=== PATIENT | male | born 1990 | race African-American/Black ===

== ENCOUNTER 2019-04-24 12:40 | Inpatient (IN) | payer MEDICAID ==
[~2019-04-24] VITALS: Ht 177.8 cm; Wt 91.2 kg
[~2019-04-24 12:40] MED LIST: PHEN100C4 PO
[2019-04-24 13:56] LABS: HEMATOCRIT. 41.6 % (42.0-52.0); HEMOGLOBIN. 13.9 g/dL (14.0-18.0); MEAN CORPUSCULAR HEMOGLOBIN 28.6 pg (28.0-32.0); MEAN CORPUSCULAR VOLUME 85.8 fL (80.0-94.0); MEAN PLATELET VOLUME 8.8 fl (7.4-10.4); PLATELET 195 x1000/uL (130-400); RED BLOOD CELL COUNT 4.85 mill/uL (4.7-6.1); RED CELL DISTRIBUTION WIDTH 14.1 % (11.6-14.6)
[2019-04-24 14:06] LABS: CHLORIDE 111 mEq/L (98-107)
[2019-04-24 14:10] LABS: ETHANOL BLOOD < 10 mg/dL
[2019-04-24 14:18] LABS: PLATELET ESTIMATE NORMAL
[2019-04-24] MEDS ORDERED: LORAZEPAM 2MG/ML CPJ ONE (14:19)
[2019-04-24] MEDS ORDERED: LORAZEPAM 2MG/ML CPJ IV ONE (14:45)
[2019-04-24 15:20] LABS: *AMPHETAMINES SCREEN URINE NEGATIVE (NEGATIVE); *BARBITURATES SCREEN URINE NEGATIVE (NEGATIVE); *BENZODIAZEPINES SCREEN URINE NEGATIVE (NEGATIVE); *COCAINE SCREEN URINE NEGATIVE (NEGATIVE); METHADONE URINE SCREEN NEGATIVE (NEGATIVE)
[2019-04-24 15:21] LABS: CANNABINOID URINE SCREEN PRESUMTIVE POSITIVE (NEGATIVE); OPIATES URINE SCREEN NEGATIVE (NEGATIVE); PHENCYCLIDINE URINE SCREEN NEGATIVE (NEGATIVE)
[2019-04-24] MEDS ORDERED: LEVETIRACETAM 500MG TABLET PO NR (16:00)
[2019-04-24 17:00] VITALS: BP 127/82
[2019-04-24 17:12] VITALS: BP 130/71
[2019-04-24 18:00] VITALS: BP 145/72
[2019-04-24] MEDS ORDERED: ALBU6.7H9 INH (19:08)
[2019-04-24] MEDS ORDERED: LEVE1000 MT (19:08)
[2019-04-24] MEDS ORDERED: LORAZEPAM 2MG/ML CPJ IV PRN (19:45)
[2019-04-24 20:00] VITALS: BP 134/78
[2019-04-24] MEDS: LEVETIRACETAM 500MG TABLET PO SCH (20:52)
[2019-04-24 22:20] VITALS: BP 147/102
[2019-04-24] MEDS: IPRATROPIUM/ALBUTEROL 0.5-3(2.5)MG/3ML NEB HHN PRN (22:37)
[2019-04-25] VITALS: BP 150/90
[2019-04-25 02:00] VITALS: BP 129/67
[2019-04-25 04:00] VITALS: BP 118/51
[2019-04-25 06:00] VITALS: BP 131/75
[2019-04-25 08:00] VITALS: BP 145/82
[2019-04-25] MEDS: IPRATROPIUM/ALBUTEROL 0.5-3(2.5)MG/3ML NEB HHN PRN (08:53)
[2019-04-25] MEDS ORDERED: PNEUMOCOCCAL 23-VAL P-SAC VAC 0.5 ML IM ONE (09:00)
[2019-04-25] MEDS: LEVETIRACETAM 500MG TABLET PO SCH (09:22)
== END 2019-04-25 09:50 | disposition left against medical advice (07) | DRG 53 ==
LOC: ER 12:40 → EDBEDREQ 15:06 → ENRESERV 15:28 → 5EST 17:40
PROVIDERS: ADMIT Internal Medicine; ATTEND Internal Medicine
DX: G40.901 Epilepsy, unspecified, not intractable, with status epilepticus (principal); E87.8 Other disorders of electrolyte and fluid balance, not elsewhere classified; F12.90 Cannabis use, unspecified, uncomplicated; S00.83XA Contusion of other part of head, initial encounter; X58.XXXA Exposure to other specified factors, initial encounter; J45.909 Unspecified asthma, uncomplicated; Z79.899 Other long term (current) drug therapy; Y93.89 Activity, other specified; Y92.89 Other specified places as the place of occurrence of the external cause; Y99.8 Other external cause status
CPT/HCPCS: 36415; 80185; 80305; 80320; 90732; 94003; 94640; 96374; 99285; J2060; J7620; G0480

== ENCOUNTER 2023-04-04 07:54 | Emergency (ER) | payer MEDICAID, OTHER ==
[~2023-04-04] VITALS: Ht 177.8 cm; Wt 78.0 kg
[~2023-04-04 07:54] MED LIST changes: +ALBU6.7H3 INH; +LEVE1000 MT; -PHEN100C4 PO
[2023-04-04] MEDS ORDERED: PHENYTOIN SODIUM EXTENDED 100MG CAPSULE PO ONE (08:30)
[2023-04-04] MEDS ORDERED: LEVETIRACETAM 500MG TABLET PO ONE (08:30)
[2023-04-04 09:31] LABS: BASOPHILS % 0.4 % (0.0-2.0); EOSINOPHILS % 3.4 % (0.0-5.0); HEMOGLOBIN. 14.3 g/dL (14.0-18.0); LYMPHOCYTES % 16.1 % (20.0-50.0); MEAN CORPUSCULAR HEMOGLOBIN 29.1 pg (28.0-32.0); MEAN CORPUSCULAR VOLUME 87.4 fL (80.0-94.0); MEAN PLATELET VOLUME 8.7 fl (7.4-10.4); NEUTROPHILS % 73.1 % (40.0-76.0); PLATELET 211 x1000/uL (130-400); RED BLOOD CELL COUNT 4.92 mill/uL (4.7-6.1); RED CELL DISTRIBUTION WIDTH 14.2 % (11.6-14.6)
[2023-04-04 09:36] LABS: CHLORIDE 109 mEq/L (98-107)
[2023-04-04 09:44] LABS: ETHANOL BLOOD < 10 mg/dL
[2023-04-04 12:12] VITALS: BP 120/68
== END 2023-04-04 12:12 | disposition home or self-care (01) ==
LOC: ER 07:54
DX: R56.9 Unspecified convulsions (principal); F12.10 Cannabis abuse, uncomplicated; J45.909 Unspecified asthma, uncomplicated
CPT/HCPCS: 36415; 80053; 80320; 85025; 99283; G0480

== ENCOUNTER 2025-06-13 14:27 | Emergency (ER) | payer MEDICAID ==
[~2025-06-13] VITALS: Ht 182.9 cm; Wt 91.0 kg
[~2025-06-13 14:27] MED LIST changes: +LACO150T2 PO; +PHEN100C4 PO
[2025-06-13 14:34] VITALS: TEMP 37.1; O2SAT 100
[2025-06-13 15:17] LABS: CREATININE 1.4 mg/dL (0.6-1.3); UREA NITROGEN BLOOD 14 mg/dL (9-23)
[2025-06-13 15:26] LABS: BASOPHILS % 0.3 % (0.0-2.0); EOSINOPHILS % 3.6 % (0.0-5.0); HEMATOCRIT. 43.7 % (42.0-52.0); HEMOGLOBIN. 13.8 g/dL (14.0-18.0); LYMPHOCYTES % 20.2 % (20.0-50.0); MEAN PLATELET VOLUME 9.3 fl (7.4-10.4); MONOCYTES % 7.1 % (2.0-8.0); NEUTROPHILS % 68.8 % (40.0-76.0); PLATELET 227 x1000/uL (130-400); RED BLOOD CELL COUNT 4.96 mill/uL (4.7-6.1); RED CELL DISTRIBUTION WIDTH 14.0 % (11.6-14.6)
[2025-06-13] MEDS: LORAZEPAM 2MG/ML UD SYRINGE IV NR (15:29)
[2025-06-13] MEDS: LEVETIRACETAM 500MG PREMIX 100 ML IV ONE ×2 (15:29)
[2025-06-13] MEDS: IBUPROFEN 800MG TABLET PO ONE (17:37)
[2025-06-13] MEDS ORDERED: LACO150T2 MT (20:23)
[2025-06-13] MEDS ORDERED: LEVE1000 MT (20:23)
[2025-06-13] MEDS ORDERED: ALBU18HF2 IH (20:23)
[2025-06-13 20:58] VITALS: BP 130/75; PULSE 74; RESP 15; O2SAT 98
== END 2025-06-13 21:25 | disposition home or self-care (01) ==
LOC: ER 14:35
DX: R56.9 Unspecified convulsions (principal); J45.909 Unspecified asthma, uncomplicated; Z79.899 Other long term (current) drug therapy; Z91.148 Patient's other noncompliance with medication regimen for other reason
CPT/HCPCS: 80048; 85025; 36415; 80339; 93005; 96374; 96375; 99285; J1953; J2060